=== PATIENT | female | born 1990 | race Caucasian/White ===

== ENCOUNTER 2018-07-01 07:40 | Inpatient (IN) ==
--- NOTE | 2018-07-01 09:14 | P.HPOB ---
History of Present Illness Service: obstetrics Primary Care Physician: No Primary Care Physician Chief Complaint: term labor induction History of Present Illness: 28 yo G1 with EDC 07/06/18 presents to L&D for scheduled term induction due to gestational diabetes, diet controlled, at 39w2d. When seen in office last week pt had very favorable Machado score with SVE 3/50/0. Pt c/o irregular contractions and pelvic pressure, 2/10, no LOF or VB. Good movement. Weeks Gestation:: 39 Para: 0 : 1 Total # of Miscarriage(s): 0 - Inpatient Certification I certify that the inpatient services were ordered in accordance with Medicare regulations governing the order. This includes certification that hospital inpatient services are reasonable and necessary and in the case of services not specified as inpatient-only under 42 CFR 419.22(n), that they are appropriately provided as inpatient services in accordance to with the 2-midnight benchmark under 43 CFR 412.3(e) Estimated Total Length of Stay (Days): 4 Plans for Post Hospital Care: Home Review of Systems All other systems reviewed negative except as stated in HPI PMFSH - Medical / Surgical Hx Neg / Unobtainable Medical Problems Denied: Yes - Family History Family History: Family History (Last Updated 07/01/18 @ 09:09 by Samantha Christianson MD) Other No significant family history - Tobacco History Second Hand Smoke Exposure: No Tobacco Use In Past 30 Days: No Smoking Status: Never smoker - Alcohol History How Often Do You Have a Drink Containing Alcohol: Never - Substance Use History Substance History: No History of Abuse - Travel History History of Recent Travel: No Recent Travel in the [place] Within the Last 8 Weeks: No Recent Travel Out of the Country Within the Last 8 Weeks: No Exam - Constitutional no acute distress - Routine HEENT Exam Head: Present: normocephalic, atraumatic Eye: Present: EOMI ENT: Present: mucous membranes moist - Routine Neck Exam Present: supple, full ROM - Routine Chest/Breast/Axilla Exam Chest wall: Absent: tenderness - Routine Respiratory Exam Absent: accessory muscle use, respiratory distress - Routine Cardiovascular Exam Present: RRR. Absent: bradycardia - Routine Abdominal Exam Present: normoactive bowel sounds Comments: size consistent with dates - Routine Extremities Exam Absent: cyanosis, clubbing - Routine Skin Exam Present: intact. Absent: cyanosis - Routine Neurological Exam Present: alert, oriented X3 Results - Labs Group B Strep: Negative Caprini VTE Risk Assessment Caprini VTE Risk Assessment: No/Low Risk (score <= 1) VTE Pharmacological Exception Reason: Epidural catheter Caprini Risk Assessment Model: Point Value = 1 Point Value = 2 Point Value = 3 Point Value = 5 Age 41-60 Minor surgery BMI > 25 kg/m2 Swollen legs Varicose veins or History of unexplained or recurrent spontaneous Oral contraceptives or hormone replacement Sepsis (< 1 month) Serious lung disease, including pneumonia (< 1 month) Abnormal pulmonary function Acute myocardial infarction Congestive heart failure (< 1 month) History of inflammatory bowel disease Medical patient at bed rest Age 61-74 Arthroscopic surgery Major open surgery (> 45 min) Laparoscopic surgery (> 45 min) Malignancy Confined to bed (> 72 hours) Immobilizing plaster cast Central venous access Age >= 75 History of VTE Family history of VTE Factor V Leiden Prothrombin [id number] Lupus anticoagulant Anticardiolipin antibodies Elevated serum homocysteine Heparin-induced thrombocytopenia Other congenital or acquired thrombophilia Stroke (< 1 month) Elective arthroplasty Hip, pelvis, or leg fracture Acute spinal cord injury (< 1 month) Prophylaxis Regimen: Total Risk Factor Score Risk Level Prophylaxis Regimen 0-1 Low Early ambulation 2 Moderate Order ONE of the following: *Sequential Compression Device (SCD) *Heparin 5000 units SQ BID 3-4 Higher Order ONE of the following medications: *Heparin 5000 units SQ TID *Enoxaparin/Lovenox 40 mg SQ daily (WT < 150 kg, CrCl > 30 mL/min) *Enoxaparin/Lovenox 30 mg SQ daily (WT < 150 kg, CrCl > 10-29 mL/min) *Enoxaparin/Lovenox 30 mg SQ BID (WT < 150 kg, CrCl > 30 mL/min) AND/OR *Sequential Compression Device (SCD) 5 or more Highest Order ONE of the following medications: *Heparin 5000 units SQ TID (Preferred with Epidurals) *Enoxaparin/Lovenox 40 mg SQ daily (WT < 150 kg, CrCl > 30 mL/min) *Enoxaparin/Lovenox 30 mg SQ daily (WT < 150 kg, CrCl > 10-29 mL/min) *Enoxaparin/Lovenox 30 mg SQ BID (WT < 150 kg, CrCl > 30 mL/min) AND *Sequential Compression Device (SCD) Assessment and Plan - Diagnosis (1) Gestational diabetes, diet controlled Code(s): O24.410 - Gestational diabetes mellitus in , diet controlled Status: Acute (2) 39 weeks gestation of Code(s): Z3A.39 - 39 weeks gestation of Status: Acute - Plan 28 yo G1 with baker IUP at 39w2d admit for labor induction at term due to gestational diabetes 1) IOL: due to favorable Machado score will induce with pitocin, AROM if indicated 2) gestational diabetes: diet controlled, weekly testing in office has been reassuring for fetus 3) GBS negative 4) status: vertex, female, EFW 13%tile on office sono last week 5) dispo: does not meet d/c criteria, anticipate d/c 2-3d PP Discharge Plannin-3d PP (1) Gestational diabetes, diet controlled Qualifiers: Trimester: third trimester Qualified Code(s): O24.410 - Gestational diabetes mellitus in , diet controlled
[2018-07-01] MEDS ORDERED: Sodium Chlor 0.9% Inj 500 ML IV.SIG PRN (09:17)
[2018-07-01] MEDS ORDERED: Sod Chloride 0.9% Inj 1,000 ML IV.CONT PRN (09:17)
[2018-07-01] MEDS ORDERED: fentaNYL Citrate Inj 100 MCG/2 ML Ampul IV.PUSH PRN ×2 (09:17)
[2018-07-01] MEDS ORDERED: Oxytocin 30 Units/500ml Premix 30 UNITS/500 ML BAG IV.SIG ONE (09:17)
[2018-07-01] MEDS ORDERED: Oxytocin 30 Units/500ml Premix 30 UNITS/500 ML BAG IV.CONT PRN (09:17)
[2018-07-01] MEDS ORDERED: Naloxone Inj 0.4 MG/ML Vial IV.PUSH PRN ×2 (09:17→17:52)
[2018-07-01] MEDS ORDERED: Citric Acid/Sodium Citrate Liq 30 ML UDC PO SCH (09:30)
[2018-07-01 09:38] LABS: Baso # (Auto) 0.1 th/mm3 (0.0-0.2); Baso % (Auto) 0.5 % (0.0-2.0); Eos % (Auto) 0.3 % (0.0-4.0); Hematocrit 37.7 % (35.0-46.0); Hemoglobin 12.9 gm/dL (11.6-15.3); Lymph # (Auto) 2.4 th/mm3 (1.0-4.8); Lymph % (Auto) 26.2 % (9.0-44.0); Mean Corpuscular HGB Conc 34.2 % (32.0-36.0); Mean Corpuscular Hemoglobin 33.1 pg (27.0-34.0); Mean Corpuscular Volume 96.8 fL (80.0-100.0); Mean Platelet Volume 8.9 fL (7.0-11.0); Mono # (Auto) 0.7 th/mm3 (0.0-0.9); Mono % (Auto) 7.9 % (0.0-8.0); Neut % (Auto) 65.1 % (16.0-70.0); Platelet Count 241 th/mm3 (150-450); Red Cell Distribution Width 12.7 % (11.6-17.2); White Blood Count 9.3 th/mm3 (4.0-11.0)
[2018-07-01 10:27] LABS: Amphetamine Urine With Conf Neg (Neg); Benzodiazepine Urine With Conf Neg (Neg)
[2018-07-01 10:28] LABS: Bacteria,Urine Moderate /hpf; Bilirubin,Urine Negative (Negative); Clarity,Urine Hazy (Clear); Color,Urine Yellow (Yellw/Straw); Glucose,Urine (UA) Negative (Negative); Leukocyte Esterase,Urine Moderate (Negative); Nitrite,Urine Negative (Negative); Specific Gravity,Urine 1.017 (1.002-1.035); Squamous Epithelial Cell,Urine 13 /hpf (0-5)
--- NOTE | 2018-07-01 11:15 | P.OBGPN ---
to bedside to evaluate pt; feeling minimal discomfort, irregular contractions SVE 5/50/-2, AROM'd clear, Cat I tracing, pitocin at 4, continue to augment
[2018-07-01] MEDS ORDERED: fentaNYL 2MCG-Bupiv 0.125% Epi 150 ML EPIDURAL ONE (14:20)
[2018-07-01] MEDS ORDERED: Rho Immune Globulin Inj 1,500 UNIT/1.3 ML Vial IM ONE (16:00)
[2018-07-01] MEDS ORDERED: Lidocaine 1% Inj 50 ML Vial ONE (17:26)
[2018-07-01] MEDS ORDERED: Benzocaine 20% Top Spray 60 ML Can TOPICAL PRN (17:52)
[2018-07-01] MEDS ORDERED: Acetaminophen 325 MG Tablet PO PRN (17:52)
[2018-07-01] MEDS ORDERED: Zolpidem Tartrate 5 MG Tablet PO PRN (17:52)
[2018-07-01] MEDS ORDERED: Witch Hazel 50%/Glyderin 12.5% 40 Pad Jar RECTAL PRN (17:52)
[2018-07-01] MEDS ORDERED: Bisacodyl 10 MG Supp RECTAL PRN (17:52)
--- NOTE | 2018-07-01 17:55 | P.OBDELI ---
Weeks Gestation: 39 Patient Started Active Labor: Yes Medical Induction of Labor: Yes Artificial Rupture of Membrane: Yes Anesthesia: Epidural Episiotomy: midline Vaginal Delivery: Vacuum (applied in appropriate position with pull x 1 and immediate delivery of head; indication: maternal exhaustion and repetitive decelerations in heart tone; examined after delivery with no abnormality noted) Presentation: Compound (LEFT HAND), Vertex Nuchal Cord: x1 (loose, reduced at perineum) Delayed Cord Clamping (45 sec): Yes Placenta: Spontaneous delivery, 3 vessel cord Laceration: Episiotomy (midline 2nd degree) Repair: Chromic running Estimated blood loss (mL): 300 Infant: Female Infant Female A Infant Delivery Date: 07/01/18 Infant Delivery Time: 17:38 score (1 min): 8 score (5 min): 9
[2018-07-01] MEDS ORDERED: Oxytocin 30 Units/500ml Premix 30 UNITS/500 ML BAG IV.CONT SCH (18:00)
[2018-07-01] MEDS ORDERED: fentaNYL Citrate Inj 100 MCG/2 ML Ampul EPIDURAL ONE (19:28)
[2018-07-01] MEDS ORDERED: fentaNYL 2MCG-Bupiv 0.125% Epi 150 ML EPIDURAL PRN (19:28)
[2018-07-01] MEDS ORDERED: Diphtheria/Tetanus/Pertussis Vaccine Inj 0.5 ML Syringe IM ONE (21:00)
[2018-07-01] MEDS ORDERED: Measles/Mumps/Rubella Vaccine Inj 0.5 ML Vial SQ ONE (21:00)
[2018-07-01] MEDS ORDERED: Varicella Vaccine Live 1350 UNITS/0.5 ML Vial SQ ONE (21:00)
--- NOTE | 2018-07-02 06:12 | P.PNOB ---
Subjective Post day: 1 Interval history: doing well, pain controlled, VB < menses, ambulating and voiding. Objective Vital Signs/I&O: Vital Signs 07/01/18 08:45 07/01/18 10:00 07/01/18 10:01 Temperature 98.6 F Pulse Rate 85 74 Respiratory Rate 18 18 Blood Pressure 123/90 119/73 07/01/18 10:30 07/01/18 11:00 07/01/18 11:30 Temperature Pulse Rate 76 70 71 Respiratory Rate Blood Pressure 104/91 H 121/73 124/75 07/01/18 12:01 07/01/18 12:45 07/01/18 13:00 Temperature Pulse Rate 72 76 74 Respiratory Rate 16 Blood Pressure 112/64 131/73 114/67 07/01/18 13:30 07/01/18 13:45 07/01/18 14:01 Temperature 98.5 F Pulse Rate 77 81 Respiratory Rate 20 Blood Pressure 119/63 115/66 07/01/18 14:41 07/01/18 15:14 07/01/18 15:25 Temperature Pulse Rate 83 78 80 Respiratory Rate Blood Pressure 122/59 L 105/65 120/63 07/01/18 15:31 07/01/18 15:45 07/01/18 16:01 Temperature Pulse Rate 122 H 89 83 Respiratory Rate Blood Pressure 116/62 125/67 117/53 L 07/01/18 16:25 07/01/18 16:31 07/01/18 16:45 Temperature Pulse Rate 103 H 93 H 98 H Respiratory Rate Blood Pressure 118/59 L 119/62 113/66 07/01/18 17:31 07/01/18 17:43 07/01/18 17:45 Temperature Pulse Rate 207 H 98 H 88 Respiratory Rate Blood Pressure 134/35 L 137/63 128/60 07/01/18 18:00 07/01/18 18:15 07/01/18 18:30 Temperature 98.8 F Pulse Rate 91 H 93 H 95 H Respiratory Rate Blood Pressure 129/67 118/105 H 113/65 07/01/18 18:45 07/01/18 19:00 07/01/18 20:00 Temperature 98.1 F Pulse Rate 96 H 84 64 Respiratory Rate 18 Blood Pressure 114/65 117/62 101/54 L Intake & Output 0807/01/18 07/02/18 06:59 18:59 06:59 Intake Total 1000 / 1000 Balance 1000 / 1000 Weight 59 kg Intake: IV 1000 / 1000 LR 1000 mL Inj 1,000 ML @ 125 1000 / 1000 mls/hr IV.CONT .Q8H [facility] Rx#: [id number] Other: Weight On Admission 59 kg Result Diagrams: 07/01/18 09:13 Objective Remarks: GENERAL: Well-nourished, well-developed patient. CARDIOVASCULAR: Regular rate and rhythm without murmurs, gallops, or rubs. RESPIRATORY: Breath sounds equal bilaterally. No accessory muscle use. ABDOMEN/GI: Abdomen soft, non-tender. Fundus: Firm, non-tender at umbilicus. GENITOURINARY: Light to moderate bleeding. EXTREMITIES: No cyanosis or edema, non-tender, without signs of DVT. Medications and IVs: Active Medications Acetaminophen (Tylenol) 650 mg PO Q4H PRN PRN Reason: PAIN SCALE 1 TO 2 Al Hydroxide/Mg Hydroxide (Milk Of Magnesia Liq) 30 ml PO Q12H PRN PRN Reason: Mild Constipation Benzocaine (Americaine 20% Top Toponas) 1 spray TOPICAL Q4H PRN PRN Reason: For Perineum Discomfort Bisacodyl (Dulcolax Supp) 10 mg RECTAL DAILY PRN PRN Reason: SEVERE CONSITIPATION Ferrous Sulfate (Ferosul) 325 mg PO DAILY [facility] Ibuprofen (Motrin) 800 mg PO Q8H PRN PRN Reason: CRAMPING Lactulose (Lactulose Liq) 30 ml PO DAILY PRN PRN Reason: SEVERE CONSITIPATION Naloxone HCl (Narcan Inj) 0.1 mg IV.PUSH Q2M PRN PRN Reason: for opiate reversal Ondansetron HCl (Zofran Odt) 4 mg PO Q6H PRN PRN Reason: NAUSEA OR VOMITING Oxycodone/Acetaminophen (Percocet 5/325 Mg) 1 tab PO Q4H PRN PRN Reason: PAIN SCALE 3 TO 5 Oxycodone/Acetaminophen (Percocet 5/325 Mg) 2 tab PO Q4H PRN PRN Reason: PAIN SCALE 6 TO 10 Vit/Calcium/Iron/Folic Ac (Stuartnatal Plus 3) 1 tab PO DAILY [facility] Senna/Docusate Sodium (Erlinda-Colace) 1 tab PO BID [facility] Sennosides (Senokot) 17.2 mg PO Q12H PRN PRN Reason: Moderate Constipation Sodium Chloride (Ns Flush) 2 ml IV.FLUSH BID [facility] Sodium Chloride (Ns Flush) 2 ml IV.FLUSH PRN PRN PRN Reason: FLUSH AFTER USING IV ACCESS Witch Danette/Glycerin (Tucks Pads) 1 applicatio RECTAL QID PRN PRN Reason: HEMORRHOIDS Zolpidem Tartrate (Ambien) 5 mg PO HS PRN PRN Reason: SLEEP Assessment and Plan - Diagnosis (1) Gestational diabetes, diet controlled Code(s): O24.410 - Gestational diabetes mellitus in , diet controlled Status: Acute (2) 39 weeks gestation of Code(s): Z3A.39 - 39 weeks gestation of Status: Acute - Plan 28 yo s/p VAVD at 39w2d for maternal exhaustion 1) PPD #1: doing well, AF, VSS, continue routine care, discussed expectations, precautions and follow up, anticipate d/c home tomorrow - Female - Reflex urine ctx collected on admission, final result pending, will need to be followed up. 2) GDM A1: will need 2hr GTT diet controlled, weekly testing in office has been reassuring for fetus (1) Gestational diabetes, diet controlled Qualifiers: Trimester: third trimester Qualified Code(s): O24.410 - Gestational diabetes mellitus in , diet controlled
[2018-07-02] MEDS: Senna/Docusate Sodium 8.6/50 MG Tablet PO SCH ×3 (06:17→21:55)
[2018-07-02] MEDS: Ferrous Sulfate 325 MG Tablet PO SCH (10:42)
[2018-07-02] MEDS: Prenatal Vit/Ca/Iron/Folic Acid Tablet PO SCH (13:40)
[2018-07-03] MEDS: Senna/Docusate Sodium 8.6/50 MG Tablet PO SCH (08:28)
[2018-07-03] MEDS: Ferrous Sulfate 325 MG Tablet PO SCH (08:28)
[2018-07-03] MEDS: Prenatal Vit/Ca/Iron/Folic Acid Tablet PO SCH (08:28)
--- NOTE | 2018-07-03 10:38 | P.PNOB ---
Subjective Post day: 2 Interval history: PPD#2, doing well, cleared for discharge home Objective Vital Signs/I&O: Vital Signs 07/02/18 20:00 07/03/18 08:00 Temperature 98.1 F 98.1 F Pulse Rate 95 H 83 Respiratory Rate 18 16 Blood Pressure 131/71 108/76 Result Diagrams: 07/01/18 09:13 Objective Remarks: GENERAL: Well-nourished, well-developed patient. CARDIOVASCULAR: Regular rate and rhythm without murmurs, gallops, or rubs. RESPIRATORY: Breath sounds equal bilaterally. No accessory muscle use. ABDOMEN/GI: Abdomen soft, non-tender. Fundus: Firm, non-tender at umbilicus. GENITOURINARY: Light to moderate bleeding. EXTREMITIES: No cyanosis or edema, non-tender, without signs of DVT. Medications and IVs: Active Medications Acetaminophen (Tylenol) 650 mg PO Q4H PRN PRN Reason: PAIN SCALE 1 TO 2 Al Hydroxide/Mg Hydroxide (Milk Of Magnesia Liq) 30 ml PO Q12H PRN PRN Reason: Mild Constipation Benzocaine (Americaine 20% Top [place]) 1 spray TOPICAL Q4H PRN PRN Reason: For Perineum Discomfort Bisacodyl (Dulcolax Supp) 10 mg RECTAL DAILY PRN PRN Reason: SEVERE CONSITIPATION Ferrous Sulfate (Ferosul) 325 mg PO DAILY [facility] Last Admin: 07/03/18 08:28 Dose: Not Given Ibuprofen (Motrin) 800 mg PO Q8H PRN PRN Reason: CRAMPING Last Admin: 07/02/18 21:54 Dose: 800 mg Lactulose (Lactulose Liq) 30 ml PO DAILY PRN PRN Reason: SEVERE CONSITIPATION Naloxone HCl (Narcan Inj) 0.1 mg IV.PUSH Q2M PRN PRN Reason: for opiate reversal Ondansetron HCl (Zofran Odt) 4 mg PO Q6H PRN PRN Reason: NAUSEA OR VOMITING Oxycodone/Acetaminophen (Percocet 5/325 Mg) 1 tab PO Q4H PRN PRN Reason: PAIN SCALE 3 TO 5 Oxycodone/Acetaminophen (Percocet 5/325 Mg) 2 tab PO Q4H PRN PRN Reason: PAIN SCALE 6 TO 10 Vit/Calcium/Iron/Folic Ac (Stuartnatal Plus 3) 1 tab PO DAILY [facility] Last Admin: 07/03/18 08:28 Dose: Not Given Senna/Docusate Sodium (Erlinda-Colace) 1 tab PO BID [facility] Last Admin: 07/03/18 08:28 Dose: Not Given Sennosides (Senokot) 17.2 mg PO Q12H PRN PRN Reason: Moderate Constipation Sodium Chloride (Ns Flush) 2 ml IV.FLUSH BID [facility] Last Admin: 07/03/18 08:28 Dose: Not Given Sodium Chloride (Ns Flush) 2 ml IV.FLUSH PRN PRN PRN Reason: FLUSH AFTER USING IV ACCESS Witch Danette/Glycerin (Tucks Pads) 1 applicatio RECTAL QID PRN PRN Reason: HEMORRHOIDS Zolpidem Tartrate (Ambien) 5 mg PO HS PRN PRN Reason: SLEEP Assessment and Plan - Diagnosis (1) Gestational diabetes, diet controlled Code(s): O24.410 - Gestational diabetes mellitus in , diet controlled Status: Acute (2) 39 weeks gestation of Code(s): Z3A.39 - 39 weeks gestation of Status: Acute - Plan 28 yo s/p VAVD at 39w2d for maternal exhaustion 1) PPD #1: doing well, AF, VSS, continue routine care, discussed expectations, precautions and follow up, anticipate d/c home tomorrow - Female - Reflex urine ctx collected on admission, final result pending, will need to be followed up. 2) GDM A1: will need 2hr GTT diet controlled, weekly testing in office has been reassuring for fetus 07/03/18, PPD# 2, stable, doing well, plan discharge to home Discharge Planning: routine today; RTO 2 weeks - Attending Attestation seen by me (1) Gestational diabetes, diet controlled Qualifiers: Trimester: third trimester Qualified Code(s): O24.410 - Gestational diabetes mellitus in , diet controlled
== END 2018-07-03 14:52 | disposition home or self-care (01) ==
LOC: H2E 07:40 → H1EA 19:33
PROVIDERS: ADMIT Obstetrics & Gynecology; ATTEND Obstetrics & Gynecology